=== PATIENT | male | born 1960 | race Caucasian/White ===

== ENCOUNTER 2018-03-24 09:17 | Day surgery (SDC) | payer OTHER ==
[~2018-03-24] VITALS: Ht 167.6 cm; Wt 106.6 kg
[2018-03-24] MEDS ORDERED: KETOROLAC 30 MG/ML VIAL ONE (10:47)
[2018-03-24] MEDS ORDERED: LIDOCAINE 2% 100 MG/5 ML UJET TP ONE (10:47)
[2018-03-24] MEDS ORDERED: fentaNYL 0.05 MG/ML VIAL ONE (11:36)
[2018-03-24] MEDS ORDERED: KETOROLAC 30 MG/ML VIAL IVP SCH (13:00)
[2018-03-24] MEDS ORDERED: fentaNYL 0.05 MG/ML VIAL IVP ONE (14:45)
[2018-03-24] MEDS ORDERED: fentaNYL 0.05 MG/ML VIAL IVP SCH (15:00)
== END 2018-03-24 12:35 | disposition home or self-care (01) ==
LOC: MDS 09:17 → MMU 09:17 → MDS 12:35
PROVIDERS: ATTEND Internal Medicine Gastroenterology
DX: D12.3 Benign neoplasm of transverse colon (principal); K57.30 Diverticulosis of large intestine without perforation or abscess without bleeding; E66.9 Obesity, unspecified; Z68.37 Body mass index [BMI] 37.0-37.9, adult; Z88.0 Allergy status to penicillin; Z88.1 Allergy status to other antibiotic agents; Z72.89 Other problems related to lifestyle
CPT/HCPCS: 45385; J1885; J3010